=== PATIENT | female | born 1950 | race Caucasian/White ===

== ENCOUNTER 2021-10-22 14:12 | Inpatient (IN) | payer MEDICARE ==
[~2021-10-22] VITALS: Ht 173 cm; Wt 79.0 kg
[2021-10-22 22:47] LABS: BASOPHIL 0.3 % (0-2); EOSINOPHIL 1.5 % (0-7); HCT 48.1 % (37.0-47.0); HGB 15.8 g/dl (12.5-16.0); LYMPHOCYTE 24.5 % (15-48); MCH 28.7 pg (25.0-31.0); MCHC 32.8 g/dL (32.0-36.0); MCV 87.3 fL (78.0-100.0); MONOCYTE 8.9 % (0-12); MPV 11.5 fL (6.0-9.5); NEUTROPHIL 64.5 % (41-80); NRBC 0; PLT 175 K/uL (150-400); RBC 5.51 M/uL (4.20-5.40); RDW 13.3 % (11.5-14.0); WBC 9.6 K/uL (4.0-10.5)
[2021-10-22 22:50] LABS: INR 1.07 (0.9-1.2); PROTHROMBIN TIME 13.3 SECONDS (11.8-13.4)
[2021-10-22 22:51] LABS: PTT 34.3 SECONDS (24.4-34.7)
[2021-10-22 22:57] LABS: ALBUMIN 4.5 g/dL (3.4-5.0); BILIRUBIN - TOTAL 1.1 mg/dL (0.2-1.0); BUN/CREAT RATIO (CALC) 19.4 RATIO; CREATININE 1.08 mg/dL (0.51-0.95); GLOBULIN (CALCULATION) 3.6 g/dL; POTASSIUM 3.4 mmol/L (3.5-5.1); TOTAL PROTEIN 8.1 g/dL (6.4-8.2)
[2021-10-23 04:36] LABS: BILIRUBIN NEGATIVE (NEGATIVE); BLOOD NEGATIVE Ery/uL (NEGATIVE); CLARITY CLEAR (CLEAR); COLOR YELLOW (YELLOW); GLUCOSE (U) NORMAL (NORMAL); LEUKOCYTES TRACE Leu/uL (NEGATIVE); NITRITE NEGATIVE (NEGATIVE); PROTEIN NEGATIVE (NEGATIVE); SPECIFIC GRAVITY 1.025 (1.001-1.030); UROBILINOGEN 0.2 mg/dL (0.2-1.0)
[2021-10-23 04:43] LABS: BACTERIA TRACE; URINARY RBC RARE
[2021-10-23 06:49] LABS: BASOPHIL 0.5 % (0-2); HCT 42.4 % (37.0-47.0); HGB 14.5 g/dl (12.5-16.0); LYMPHOCYTE 26.6 % (15-48); MCH 29.4 pg (25.0-31.0); MCHC 34.2 g/dL (32.0-36.0); MONOCYTE 9.7 % (0-12); NEUTROPHIL 56.9 % (41-80); NRBC 0; PLT 150 K/uL (150-400); RBC 4.93 M/uL (4.20-5.40); RDW 13.3 % (11.5-14.0); WBC 7.6 K/uL (4.0-10.5)
[2021-10-23 07:17] LABS: CREATININE 0.89 mg/dL (0.51-0.95); POTASSIUM 3.4 mmol/L (3.5-5.1)
[2021-10-23] MEDS ORDERED: COZAAR 100MG T100 MG PO (12:26)
[2021-10-23] MEDS ORDERED: SYNTHROID88 MCG PO (12:27)
[2021-10-23] MEDS ORDERED: HCTZ25 MG PO (12:28)
[2021-10-23] MEDS ORDERED: NORVASC5 MG PO (12:30)
[2021-10-23] MEDS ORDERED: PANTOPRAZOLE SO40 MG PO (12:30)
[2021-10-23] MEDS ORDERED: TENORMIN50 MG PO (12:30)
[2021-10-25 06:57] LABS: BASOPHIL 0.2 % (0-2); EOSINOPHIL 0.9 % (0-7); HCT 35.1 % (37.0-47.0); HGB 11.4 g/dl (12.5-16.0); MCH 28.7 pg (25.0-31.0); MCHC 32.5 g/dL (32.0-36.0); MCV 88.4 fL (78.0-100.0); MONOCYTE 12.5 % (0-12); MPV 11.1 fL (6.0-9.5); NRBC 0; PLT 126 K/uL (150-400); RBC 3.97 M/uL (4.20-5.40); RDW 13.2 % (11.5-14.0); WBC 9.9 K/uL (4.0-10.5)
[2021-10-25 07:09] LABS: BUN/CREAT RATIO (CALC) 14.7 RATIO; CREATININE 0.95 mg/dL (0.51-0.95); POTASSIUM 4.3 mmol/L (3.5-5.1)
[2021-10-25] MEDS ORDERED: FEOSOL325 MG PO (08:12)
[2021-10-25] MEDS ORDERED: XARELTO10 MG PO (08:13)
[2021-10-25] MEDS ORDERED: PANTOPRAZOLE SO40 MG PO (08:18)
== END 2021-10-25 13:53 | disposition home or self-care (01) | DRG 522 ==
LOC: FER 14:12 → FMS 10-23 00:58 → FOFB 10-23 00:58 → FMS 10-23 07:35
PROVIDERS: Emergency Medicine; Nurse Practitioner; Orthopaedic Surgery; ADMIT Hospitalist
PROC: 0SR904A Replacement of Right Hip Joint with Ceramic on Polyethylene Synthetic Substitute, Uncemented, Open Approach (ICD-10-PCS; principal; 2021-10-24 07:00)
DX: S72.011A Unspecified intracapsular fracture of right femur, initial encounter for closed fracture (principal); N17.9 Acute kidney failure, unspecified; I10 Essential (primary) hypertension; R73.03 Prediabetes; Z20.822 Contact with and (suspected) exposure to COVID-19; M51.36 Other intervertebral disc degeneration, lumbar region; L40.50 Arthropathic psoriasis, unspecified; E03.9 Hypothyroidism, unspecified; Z90.49 Acquired absence of other specified parts of digestive tract; Z90.89 Acquired absence of other organs; Z98.890 Other specified postprocedural states; Z82.3 Family history of stroke; Z88.8 Allergy status to other drugs, medicaments and biological substances; Z91.013 Allergy to seafood; Z88.6 Allergy status to analgesic agent; Z87.11 Personal history of peptic ulcer disease; W01.0XXA Fall on same level from slipping, tripping and stumbling without subsequent striking against object, initial encounter
CPT/HCPCS: 36415; 70450; 71045; 73080; 73110; 73501; 73502; 73700; 76000; 80048; 80053; 81001; 85025; 85610; 85730; 86900; 86901; 93005; 94010; 94762; 97110; 97162; 97166; 97530-GP; 97535; C1776; J0171; J0697; J1100; J1885; J2250; J2270; J2405; J2704; J2795; J3010; J7030; J7120; U0002

== ENCOUNTER 2022-03-08 19:59 | Inpatient (IN) | payer MEDICARE ==
[~2022-03-08] VITALS: Ht 173 cm; Wt 85.0 kg
[~2022-03-08 19:59] MED LIST: COZAAR 100MG T100 MG PO; FEOSOL325 MG PO; HCTZ25 MG PO; NORVASC5 MG PO; PANTOPRAZOLE SO40 MG PO; SYNTHROID88 MCG PO; TENORMIN50 MG PO; XARELTO10 MG PO
[2022-03-08 22:21] LABS: BASOPHIL 0.3 % (0-2); EOSINOPHIL 0.4 % (0-7); HGB 15.4 g/dl (12.5-16.0); MCH 27.5 pg (25.0-31.0); MCHC 32.8 g/dL (32.0-36.0); MCV 83.9 fL (78.0-100.0); MONOCYTE 5.8 % (0-12); MPV 10.5 fL (6.0-9.5); NEUTROPHIL 70.6 % (41-80); NRBC 0; PLT 193 K/uL (150-400); RDW 13.2 % (11.5-14.0); WBC 10.8 K/uL (4.0-10.5)
[2022-03-08 22:31] LABS: INR 1.03 (0.9-1.2); PROTHROMBIN TIME 12.9 SECONDS (11.8-13.4); PTT 31.3 SECONDS (24.4-34.7)
[2022-03-08 22:39] LABS: CREATININE 0.91 mg/dL (0.51-0.95); POTASSIUM 3.5 mmol/L (3.5-5.1)
[2022-03-08 22:57] LABS: CORONAVIRUS 2019 SARS-COV-2 NEGATIVE (NEGATIVE); INFLUENZA A NAA NEGATIVE (NEGATIVE)
--- NOTE | 2022-03-09 01:56 | NUR ---
0145 AM F/C 18 FR PLACED TO [facility] FOR PAIN MANAGEMENT AND PRE-OP D/T LEFT HIP FX, 10CC BALLOON, MAINTAINED ORCHID HAND, JAMES PROCEDURE WELL. F/C ANCHOR AND SECURED, DATED AND LABELED.
[2022-03-09 08:32] LABS: BASOPHIL 0.5 % (0-2); EOSINOPHIL 1.3 % (0-7); HCT 41.6 % (37.0-47.0); HGB 13.7 g/dl (12.5-16.0); LYMPHOCYTE 25.4 % (15-48); MCH 27.7 pg (25.0-31.0); MCHC 32.9 g/dL (32.0-36.0); MONOCYTE 7.1 % (0-12); MPV 10.4 fL (6.0-9.5); NEUTROPHIL 65.2 % (41-80); NRBC 0; PLT 158 K/uL (150-400); RBC 4.95 M/uL (4.20-5.40); RDW 13.3 % (11.5-14.0); WBC 7.6 K/uL (4.0-10.5)
[2022-03-09 09:52] LABS: CREATININE 0.85 mg/dL (0.51-0.95); POTASSIUM 3.6 mmol/L (3.5-5.1)
--- NOTE | 2022-03-09 11:25 | NUR ---
PT RESIDES W/SPOUSE. SHE HAS A ROLLING WALKER. ON HER LAST FX HIP IN OCTOBER PT WENT TO [facility].
[2022-03-10 06:21] LABS: HCT 37.8 % (37.0-47.0); HGB 12.3 g/dl (12.5-16.0); MCH 27.8 pg (25.0-31.0); MCHC 32.5 g/dL (32.0-36.0); MCV 85.5 fL (78.0-100.0); MPV 10.9 fL (6.0-9.5); RBC 4.42 M/uL (4.20-5.40); RDW 13.4 % (11.5-14.0); WBC 6.6 K/uL (4.0-10.5)
[2022-03-10 06:45] LABS: BUN/CREAT RATIO (CALC) 14.6 RATIO; CREATININE 0.89 mg/dL (0.51-0.95); POTASSIUM 3.4 mmol/L (3.5-5.1)
--- NOTE | 2022-03-10 10:36 | NUR ---
PT WISHES TO GO TO THE [facility] PHONE NUMBER IS [phone]. FAX NUMBER IS [phone]. PLEASE FAX FACE SHEET AND H & P AND ORDER TO [facility]. IF PT D/C ON SATURDAY, SHE WILL NEED TO MAKE HER OWN APPT ON SATURDAY.
[2022-03-11 03:54] LABS: HCT 29.7 % (37.0-47.0); HGB 9.7 g/dl (12.5-16.0); MCH 28.2 pg (25.0-31.0); MCHC 32.7 g/dL (32.0-36.0); MCV 86.3 fL (78.0-100.0); MPV 10.7 fL (6.0-9.5); RBC 3.44 M/uL (4.20-5.40); RDW 13.4 % (11.5-14.0); WBC 10.1 K/uL (4.0-10.5)
[2022-03-11] MEDS ORDERED: DULCOLAX5 MG PO (08:01)
[2022-03-11] MEDS ORDERED: XARELTO10 MG PO (08:01)
[2022-03-11] MEDS ORDERED: OXYCODONE-ACET1 EAC1 PO (08:01)
[2022-03-11] MEDS ORDERED: PERCOCET 5-3251 EACH PO (08:24)
== END 2022-03-11 12:22 | disposition home or self-care (01) | DRG 522 ==
LOC: FER 19:59 → FMS 22:01
PROVIDERS: Internal Medicine; Nurse Practitioner; Orthopaedic Surgery; ADMIT Internal Medicine
PROC: B24BZZZ Ultrasonography of Heart with Aorta (ICD-10-PCS; 2022-03-09)
PROC: 0SRB04A Replacement of Left Hip Joint with Ceramic on Polyethylene Synthetic Substitute, Uncemented, Open Approach (ICD-10-PCS; principal; 2022-03-10 07:00)
DX: S72.012A Unspecified intracapsular fracture of left femur, initial encounter for closed fracture (principal); I10 Essential (primary) hypertension; K21.9 Gastro-esophageal reflux disease without esophagitis; E03.9 Hypothyroidism, unspecified; L40.50 Arthropathic psoriasis, unspecified; I35.0 Nonrheumatic aortic (valve) stenosis; Z20.822 Contact with and (suspected) exposure to COVID-19; M81.0 Age-related osteoporosis without current pathological fracture; W19.XXXA Unspecified fall, initial encounter; Z79.01 Long term (current) use of anticoagulants; Z79.899 Other long term (current) drug therapy; Z90.710 Acquired absence of both cervix and uterus; Z90.49 Acquired absence of other specified parts of digestive tract; Z98.890 Other specified postprocedural states; Z88.5 Allergy status to narcotic agent; Z88.6 Allergy status to analgesic agent; Z91.013 Allergy to seafood
CPT/HCPCS: 36415; 71045; 73501; 73502; 76000; 80048; 85025; 85610; 85730; 86850; 86900; 86901; 93005; 94010; 97116; 97161; C1776; J0697; J1170; J2250; J2370; J2405; J2704; J3010; J7120; U0002